=== PATIENT | female | born 1980 | race Native Hawaiian/Other Pacific Islander ===

== ENCOUNTER 2016-10-12 13:00 | Inpatient (IN) | payer BC ==
[~2016-10-12] VITALS: Ht 157.5 cm; Wt 101.6 kg
[2016-10-18] VITALS (9 sets, daily range): BP systolic 102–129; BP diastolic 51–67; PULSE 51–64; RESP 16–18; TEMP 97.5–98.2; O2SAT 99–100
[2016-10-18] MEDS ORDERED: LACTATED RINGER'S 1000 ML INJ 1,000 ML IV ONE (08:34)
[2016-10-18 08:45] LABS: BACTERIA, URINE OCC /hpf; BLOOD, URINE NEG (NEG); COMMENT (UR) CULT NOT INDICATED; CULTURE IF INDICATED CULT NOT INDICATED; GLUCOSE,URINE NEG (NEG); KETONE, URINE NEG (NEG); MUCUS URINE FEW /lpf (OCC); NITRITE,URINE NEG (NEG); SQUAMOUS EPITHELIAL CELL URINE 2 /hpf (0-5); URINE COLOR YELLOW (YELLW/STRAW)
[2016-10-18 08:45] LABS: AUTOMATED NEUTROPHIL # 5.8 TH/MM3 (1.8-7.7); BASOPHIL % 0.3 % (0.0-2.0); EOSINOPHIL # 0.1 TH/MM3 (0-0.4); EOSINOPHIL % 1.1 % (0.0-4.0); HEMATOCRIT 35.6 % (35.0-46.0); HEMO FLAGS DIFF FINAL; LYMPH % 19.9 % (9.0-44.0); LYMPHOCYTE # 1.6 TH/MM3 (1.0-4.8); MEAN CELL VOLUME 85.5 FL (80.0-100.0); MEAN CORPUSCULAR HEMOGLOBIN 28.7 PG (27.0-34.0); MEAN CORPUSCULAR HGB CONC 33.5 % (32.0-36.0); MONO % 6.9 % (0.0-8.0); NEUT % 71.8 % (16.0-70.0); PLATELET COUNT 196 TH/MM3 (150-450); RED BLOOD COUNT 4.17 MIL/MM3 (4.00-5.30); RED CELL DISTRIBUTION WIDTH 13.4 % (11.6-17.2); WHITE BLOOD COUNT 8.1 TH/MM3 (4.0-11.0)
[2016-10-18] MEDS ORDERED: LACTATED RINGER'S 1000 ML INJ 1,000 ML IV SCH ×2 (09:04→16:15)
[2016-10-18] MEDS ORDERED: VALA500T PO (09:26)
[2016-10-18] MEDS ORDERED: PREN29TA PO (09:26)
[2016-10-18] MEDS ORDERED: ceFAZolin 2 GM PREMIX 50 ML IV SCH (09:45)
[2016-10-18] MEDS ORDERED: OXYTOCIN 10 UNIT/ML AMP ONE (09:54)
[2016-10-18] MEDS ORDERED: ONDANSETRON HCL 4 MG/2 ML VIAL ONE (09:54)
[2016-10-18] MEDS ORDERED: MORPHINE SULFATE PF 5 MG/10 ML VIAL ONE (09:54)
--- NOTE | 2016-10-18 09:59 | HHI.HP ---
HPI Chief Complaint primary cd Date Seen: October 18, 2016 Travel History International Travel<30 Days: No Contact w/Intl Traveler<30Days: No Known Affected Area: No History of Present Illness HPI 35 yo G1 with iup at 39w3d here for primary cd for macrosomia. + FM, irreg ctx , neg lof or vb. Para: 0 : 1 History Past Medical History Narrative Medical AMA, exposure to HSV, varicella non-immune Past Surgical History Surgical History: No Previous Surgery Family History Family History: Negative Social History Alcohol Use: No Tobacco Use: No Substance Abuse: No Allergies-Medications (Allergen,Severity, Reaction): Coded Allergies: No Known Allergies (Unverified , 10/18/16) Home Meds Reported Medications Valacyclovir 500 Mg [id number] Mg PO DAILY #30 TAB Ref 0 10/18/16 Vit-Iron Carbonyl ( Plus Iron 29-1 mg)1 Tab Tab1 Tab PO DAILY #30 TAB Ref 0 10/18/16 Review of Systems General / Constitutional: No: Fever, Weight Gain, Chills, Other Eyes: No: Diploplia, Blurred Vision, Visual changes, Pain, Photophobia HENT: No: Headaches, Vertigo, Lightheadedness Cardiovascular: No: Irregular Rhythm, Chest Pain or Discomfort, Palpitations, Tachycardia, Syncope, Varicosities, Edema, Cyanosis Respiratory: No: Cough, Short of Breath, Other Gastrointestinal: No: Nausea, Vomiting, Diarrhea Genitourinary: No: Decreased Urinary Output, Oliguria Musculoskeletal: No: Limited ROM, Weakness, Cramping, Edema, Pain Skin: No Rash, No Itching, No Dryness, No Lumps, No Change in Pigmentation, No Change in Nails, No Alopecia, No Lesions Neurologic: No: Weakness, Dizziness, Syncope, Focal Abnormalities, Coordination Problem, Headache, Slurred Speech, Seizures Psychiatric: No: Depression, Suicidal Ideations, Homicidal Ideation Endocrine: No: Heat Intolerance, Cold Intolerance, Polydipsia, Polyuria, Other Physical Exam Narrative GENERAL: Well-nourished, well-developed patient. SKIN: Warm and dry. HEAD: Normocephalic and atraumatic. EYES: No scleral icterus. No injection or drainage. ENT: No nasal drainage noted. Mucous membranes pink. Airway patent. NECK: Supple, trachea midline. No JVD. CARDIOVASCULAR: Regular rate and rhythm without murmurs, gallops, or rubs. RESPIRATORY: Breath sounds equal bilaterally. No accessory muscle use. BREASTS: Bilateral exam showed no masses , no retractions, no nipple discharge. ABDOMEN/GI: Abdomen soft, non-tender, bowel sounds present, no rebound, no guarding Gravid to42 weeks size Fundal Height: [-] GENITOURINARY: External Genitalia: intact and normal in appearance defer today, unfavorable in office this week Presentation: ceph Membranes: [intact Uterine Contractions: irreg FHT's: Category: I Baseline: 140 Reactive: y Variability: mod Decels: [-] EXTREMITIES: No cyanosis or edema. BACK: Nontender without obvious deformity. No CVA tenderness. NEUROLOGICAL: Awake and alert. Motor and sensory grossly within normal limits. Five out of 5 muscle strength in all muscle groups. Normal speech. Data Data Vital Signs Reviewed: Yes Orders Admit To Inpatient (10/18/16 ) Vital Signs (Adult) .ON ADMISSION (10/18/16 08:34) Activity Oob Ad Dilia (10/18/16 08:34) Heart (10/18/16 08:34) Urinary Catheter Management RU.Q8H (10/18/16 08:34) ^ Preps (10/18/16 08:34) Scd / Hoang / Foot Pump RU.QSHIFT (10/18/16 08:34) ^ Ultrasound For Locatio (10/18/16 08:34) Diet Npo (10/18/16 Breakfast) Lactated Ringer's 1000 Ml Inj (Lr 1000 M (10/18/16 08:34) Lactated Ringer's 1000 Ml Inj (Lr 1000 M (10/18/16 09:04) Cefazolin 2 Gm Premix (Ancef 2 Gm Premix (10/18/16 09:45) Citric Acid-Sodium Citrate Liq (Bicitra (10/18/16 10:15) Type And Screen (10/18/16 08:34) Complete Blood Count With Diff (10/18/16 08:34) Urinalysis - C+S If Indicated (10/18/16 08:34) Inpatient Certification (10/18/16 ) Specimen To Be Collected PRN (10/18/16 08:34) Labs Laboratory Tests Test 10/18/16 10/18/16 08:10 08:25 Urine Color YELLOW Urine Turbidity CLEAR Urine pH 6.0 Urine Specific [place] 1.022 Urine Protein TRACE Urine Glucose (UA) NEG Urine Ketones NEG Urine Occult Blood NEG Urine Nitrite NEG Urine Bilirubin NEG Urine Urobilinogen LESS THAN 2.0 Urine Leukocyte Esterase MOD Urine RBC 1 Urine WBC 3 Urine Squamous Epithelial 2 Cells Urine Bacteria OCC Urine Mucus FEW Microscopic Urinalysis Comment CULT NOT INDICATED White Blood Count 8.1 Red Blood Count 4.17 Hemoglobin 11.9 Hematocrit 35.6 Mean Corpuscular Volume 85.5 Mean Corpuscular Hemoglobin 28.7 Mean Corpuscular Hemoglobin 33.5 Concent Red Cell Distribution Width 13.4 Platelet Count 196 Mean Platelet Volume 9.9 Neutrophils (%) (Auto) 71.8 Lymphocytes (%) (Auto) 19.9 Monocytes (%) (Auto) 6.9 Eosinophils (%) (Auto) 1.1 Basophils (%) (Auto) 0.3 Neutrophils # (Auto) 5.8 Lymphocytes # (Auto) 1.6 Monocytes # (Auto) 0.6 Eosinophils # (Auto) 0.1 Basophils # (Auto) 0.0 CBC Comment DIFF FINAL Differential Comment Blood Type O POSITIVE Antibody Screen NEGATIVE Blood Bank Comment Assessment/Plan Problem List: (1) Macrosomia (2) Advanced maternal age, primigravida Assessment and Plan 35 yo G1 with iup at 39w3d here for primary cd for macrosomia 1) Primary cd for macrosomia- discussed risks of macrosomia, shoulder dystocia, fracture, palsies, maternal trauma, including fourth degree lacerations and risk of incontinence, pph. Discussed unfavorable degroot score, small pelvis, high station and likely arrest of labor or descent. Discussed options, family in agreement with proceeding with primary cd. r/b/a discussed at length in office, re-iterated today. 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 Keena Miller MD October 18, 2016 09:59
[2016-10-18] MEDS ORDERED: CITRIC ACID-SODIUM CITRATE LIQ 30 ML UDC PO SCH (10:15)
[2016-10-18] MEDS ORDERED: LIDOCAINE 2%/EPINEPHrine PF 1:200,000 20ML SDV OTHER ONE (10:30)
[2016-10-18] MEDS ORDERED: LACTATED RINGER'S 1,000 ML BAG IV ONE (10:30)
[2016-10-18] MEDS ORDERED: ZOLPIDEM TARTRATE 5 MG TAB PO PRN (11:15)
[2016-10-18] MEDS ORDERED: ONDANSETRON HCL 4 MG/2 ML VIAL IV PUSH PRN (11:15)
[2016-10-18] MEDS ORDERED: OXYTOCIN 30 UNITS-500ML PREMIX 500 ML IV ONE (11:15)
[2016-10-18] MEDS ORDERED: SIMETHICONE 80 MG CHEWABLE TAB PO PRN (11:15)
[2016-10-18] MEDS ORDERED: oxyCODONE/ACETAMINOPHEN 5 MG/325 MG TAB PO PRN ×2 (11:15)
[2016-10-18] MEDS ORDERED: SODIUM CHLORIDE 0.9% FLUSH 10 ML FLUSH IV FLUSH PRN (11:15)
[2016-10-18] MEDS ORDERED: DOCUSATE SODIUM 50 MG/SENNA 8.6 MG TAB PO PRN (11:15)
--- NOTE | 2016-10-18 11:17 | HHI.DCPOC ---
Discharge Care Plan Diagnosis: (1) delivery delivered Your Health Problems Are: delivery Report Symptoms to Your Doctor -Temperate above 100.5 degrees -Redness, of incision or excessive or foul smelling drainage -Unusual pain or calf pain -Increased vaginal bleeding -Painful or difficulty urinating -Feelings of extreme sadness or anxiety after 2 weeks Goals to Promote Your Health * To prevent worsening of your condition and complications * To maintain your health at the optimal level Directions to Meet Your Goals Take your medications as prescribed Follow your dietary instruction Follow activity as directed Ensure plenty of rest for recovery Drink fluids for hydration Keep your appointments as scheduled Take your immunizations and boosters as scheduled If your symptoms worsen call your PCP, if no PCP go to Urgent Care Center or Emergency Room Smoking is Dangerous to Your Health. Avoid second hand smoke Call the 24-hour crisis hotline for domestic abuse at Keena Miller MD October 18, 2016 11:17
--- NOTE | 2016-10-18 11:19 | PD.OB.DELI ---
Procedure Note Section Procedure Pre Op Diagnosis: (1) Advanced maternal age, primigravida (2) Macrosomia Post Op Diagnosis: (1) Advanced maternal age, primigravida (2) Macrosomia Performed by Keena Miller Procedure: Primary Low Transverse Sec Indication for delivery: Other (macrosomia suspected) Informed consent obtained: For anesthesia, For procedure Confirmed correct: Patient, Procedure, Site, Time-out taken Anesthesia: Spinal Medication prior to procedure: As documented in eMAR Monitoring during procedure: Blood pressure monitoring, Pulse oximetry Urinary catheter: Inserted using sterile technique, To dependent drainage, ml urine output (50) Sterile preparation: Duraprep, In usual fashion, With drapes to expose affected area Position: Supine with wedge to right side, Supine with safety belt applied Operative Features Skin Incision: Pfannenstiel Uterine Incision: Low transverse w/knife / scissors Membranes Ruptured: Artificially, Amount of liquid (copious), Appearance of fluid (clear) Presentation: Occiput anterior Delivery of : Uneventful, Umbilical cord (nuchal cord x 1) Infant: Female One Minute : 9 Five Minute : 9 Weight: 4000g Status of infant: Viable, Cord blood, Nursery present Placenta delivered: Intact Medications: Antibiotics, Oxytocin Estimated blood loss: 800ml Procedure tolerated: Well Maternal Condition: Stable Condition: Stable Procedure in detail dictation Keena Miller MD October 18, 2016 11:19
[2016-10-18] MEDS ORDERED: OXYTOCIN 30 UNITS-500ML PREMIX 500 ML ONE (11:50)
[2016-10-18] MEDS ORDERED: ACETAMINOPHEN 325 MG TAB PO PRN (12:00)
[2016-10-18] MEDS ORDERED: EPIDURAL-NALOXONE HCL 0.4 MG/ML AMP IV PRN (13:00)
[2016-10-18] MEDS ORDERED: EPIDURAL-DIPHENHYDRAMINE HCL 50 MG/ML VIAL IV PUSH PRN (13:00)
[2016-10-18] MEDS ORDERED: EPIDURAL-DIPHENHYDRAMINE HCL 50 MG CAP PO PRN (13:00)
[2016-10-18] MEDS ORDERED: EPIDURAL-DO NOT ADMINISTER ANTICOAGULANTS PRN (13:00)
[2016-10-18] MEDS ORDERED: EPIDURAL-NO SYSTEMIC NARCOTICS PRN (13:00)
--- NOTE | 2016-10-18 13:04 | MP ---
cc: KEENA MILLER MD DATE OF SURGERY 10/18/2016 PREOPERATIVE DIAGNOSIS Advanced maternal age, macrosomia. POSTOPERATIVE DIAGNOSIS Advanced maternal age, macrosomia. PROCEDURE PERFORMED Primary low transverse section. INDICATION FOR DELIVERY Suspected macrosomia and a 38-week ultrasound showing weight of 9 pounds 3 ounces, and suspected cephalopelvic disproportion. 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 ANESTHESIA Spinal. ANTIBIOTICS Ancef 2 grams IV given pre incision. ESTIMATED BLOOD LOSS 800 ml. IV FLUIDS 1200 ml of LR. URINE OUTPUT 50 ml of clear, yellow urine at the end of the case. DEEP VENOUS THROMBOSIS PROPHYLAXIS SCDs on bilateral extremities. INTRAOPERATIVE FINDINGS Viable female with Apgars of 9 and 9 at 1 minute and 5 minutes, respectively. weight 4000 grams. Nuchal cord x1. Copious amounts amniotic fluid. Placenta intact. Three-vessel cord. Maternal anatomy posterior right fundal fibroid approximately 3 cm in size. Normal tubes and ovaries bilaterally. SPECIMEN Cord blood. COMPLICATIONS None. OPERATION IN DETAIL After reviewing informed consent the patient was taken to operating room. Time-out was performed to confirm correct patient, procedure and site. Spinal anesthesia was administered without complication. The patient was placed in dorsal supine position with a slight leftward tilt. A [place] was placed under sterile condition. The abdomen was prepped and draped in normal sterile fashion. SCDs were in place. Local anesthesia was noted to be adequate. A Pfannenstiel skin incision was made with scalpel and carried down to underlying layer of fascia with the Bovie. The fascia was incised in the midline with the Bovie. This incision was extended bilaterally with Vasquez scissors. The superior edge of the fascial incision was grasped with Evans clamps, elevated and the rectus muscle dissected off of the fascia with Vasquez scissors and bluntly. The same was repeated inferiorly. The rectus muscles were in the midline bluntly. The peritoneum was entered bluntly. A bladder blade was inserted with good visualization of the lower uterine segment. A bladder flap was created with Metzenbaum scissors and further developed digitally. A low transverse uterine incision was made with a scalpel. The incision was initially extended bluntly but the lower uterine segment was not thinned out so the bandage scissors were used to further extended the incision. The amnion was then ruptured and clear fluid in copious amounts was noted. The head was flexed. Fundal pressure was used to deliver the head. A cord was noted around the neck, this was reduced. Fundal pressure was used to assist with the rest of the delivery. Delayed cord clamping was performed. Cord blood was collected. Baby was handed off to awaiting cement mixer. IV infusion of Pitocin was started immediately after delivery of the . The placenta was delivered with gentle uterine massage and cord traction. Membranes were further removed from the uterus with the ring forceps. The uterus was exteriorized. A moist laparotomy sponges were used to clean the uterine cavity. The uterus was repaired with #1 chromic in a running locked fashion followed by an imbricating layer. The uterus was noted to be hemostatic. The posterior cul-de-sac was irrigated and suctioned. The uterus was returned to the abdomen. Anterior cul-de-sac was irrigated and suctioned. Good hemostasis was noted. The peritoneum was closed with 2-0 chromic in a running fashion. The fascia was closed with #1 Vicryl in a running fashion. The subcutaneous layer was irrigated and suctioned. Bovie was used to ensure hemostasis. This layer was closed with 2-0 Vicryl in a running fashion. Skin was closed with 3-0 Monocryl. Steri-Strips and a sterile dressing were placed. The patient tolerated the procedure well. She was sent to PACU in stable condition. Keena Miller MD PE/JES /11:24 AM /12:20 PM JOSE EDUARDO
[2016-10-18] MEDS ORDERED: SODIUM CHLORIDE 0.9% FLUSH 10 ML FLUSH IV FLUSH SCH (21:00)
[2016-10-18] MEDS ORDERED: OXYTOCIN 30 UNITS-500ML PREMIX 500 ML IV PRN (21:15)
[2016-10-19 03:41] LABS: AUTOMATED NEUTROPHIL # 10.4 TH/MM3 (1.8-7.7); BASOPHIL # 0.1 TH/MM3 (0-0.2); BASOPHIL % 0.5 % (0.0-2.0); EOSINOPHIL # 0.1 TH/MM3 (0-0.4); EOSINOPHIL % 0.5 % (0.0-4.0); HEMATOCRIT 33.2 % (35.0-46.0); HEMO FLAGS DIFF FINAL; LYMPHOCYTE # 1.4 TH/MM3 (1.0-4.8); MEAN CELL VOLUME 85.5 FL (80.0-100.0); MEAN CORPUSCULAR HEMOGLOBIN 28.8 PG (27.0-34.0); MEAN CORPUSCULAR HGB CONC 33.7 % (32.0-36.0); MONO % 5.5 % (0.0-8.0); NEUT % 82.5 % (16.0-70.0); PLATELET COUNT 190 TH/MM3 (150-450); RED BLOOD COUNT 3.89 MIL/MM3 (4.00-5.30); RED CELL DISTRIBUTION WIDTH 13.6 % (11.6-17.2); WHITE BLOOD COUNT 12.6 TH/MM3 (4.0-11.0)
[2016-10-19 04:00] VITALS: BP 108/60; PULSE 60; RESP 16; TEMP 98.2
[2016-10-19 08:00] VITALS: BP 107/52; PULSE 57; RESP 16; TEMP 98.2
[2016-10-19] MEDS ORDERED: PNEUMOCOCCAL POLYVALENT INJ 25 MCG/0.5 ML SYR IM ONE (09:00)
--- NOTE | 2016-10-19 12:21 | HHI.OB ---
Subjective Post Operative Day: 1 Remarks s/p scheduled for CPD/macrosomia Objective Vitals/I&O Vital Signs Date Time Temp Pulse Resp B/P Pulse Ox O2 Delivery O2 Flow Rate FiO2 10/19/16 08:00 98.2 57 16 107/52 10/19/16 04:00 60 16 108/60 10/19/16 04:00 98.2 10/18/16 23:48 97.8 57 16 119/64 10/18/16 16:00 51 16 113/51 10/18/16 13:00 97.5 54 17 106/62 10/18/16 12:30 55 18 121/63 100 Result Diagram: 10/19/16 0330 Objective Remarks GENERAL: Well-nourished, well-developed patient. CARDIOVASCULAR: Regular rate and rhythm without murmurs, gallops, or rubs. RESPIRATORY: Breath sounds equal bilaterally. No accessory muscle use. ABDOMEN/GI: Abdomen soft, non-tender, bowel sounds present. Incision: Clean, dry and intact. steri-strips in place. Fundus: Firm, non-tender at umbilicus. GENITOURINARY: Light bleeding. EXTREMITIES: No cyanosis or edema, non-tender, without signs of DVT. Medications and IVs Current Medications Medications (Trade) Dose Ordered Sig/Darwin Route Start Time Stop Time Status Last Admin (NS Flush) 2 ml BID IV FLUSH 10/18/16 21:00 (NS Flush) 2 ml UNSCH PRN IV FLUSH 10/18/16 11:15 (Mylicon Chew) 80 mg QID PRN PO 10/18/16 11:15 (Tylenol) 650 mg Q6H PRN PO 10/18/16 12:00 (Motrin) 600 mg Q6H PRN PO 10/18/16 11:15 (Percocet 5-325 Mg) 1 tab Q4H PRN PO 10/18/16 11:15 (Percocet 5-325 Mg) 2 tab Q4H PRN PO 10/18/16 11:15 (Citlali-Colace) 2 tab Q12H PRN PO 10/18/16 11:15 (Ambien) 5 mg HS PRN PO 10/18/16 11:15 (M-M-R Ii Inj) 0.5 ml ONCE ONCE SQ 10/19/16 16:00 10/19/16 16:01 (Boostrix Inj) 0.5 ml ONCE ONCE IM 10/19/16 16:00 10/19/16 16:01 (Zofran Inj) 4 mg Q6H PRN IV PUSH 10/18/16 11:15 Miscellaneous Information NO SYSTEMIC NARCOTICS TO BE GIVEN FO... UNSCH PRN .XX 10/18/16 13:00 10/19/16 12:59 (Narcan Inj) 0.4 mg UNSCH PRN IV 10/18/16 13:00 10/19/16 12:59 (Benadryl Inj) 25 mg Q6H PRN IV PUSH 10/18/16 13:00 10/19/16 12:59 (Benadryl) 50 mg Q6H PRN PO 10/18/16 13:00 10/19/16 12:59 Miscellaneous Information ALL NURSING DEPARTMENTS UNSCH PRN .XX 10/18/16 13:00 10/19/16 12:59 Assessment/Plan Problem List: (1) delivery delivered (2) Macrosomia (3) Advanced maternal age, primigravida Assessment and Plan 35 yo s/p primary LTCD for macrosomia at 39w3d POD#1 - ambulating, voiding, tolerating diet, pain controlled anticipate d/c on POD#2 or 3 female infant doing well . Discharge Planning routine, POD#2-3 Mira Beltran MD October 19, 2016 12:21
[2016-10-19] MEDS ORDERED: IBUP-232 PO (12:22)
[2016-10-19] MEDS ORDERED: OXYC1TAB63 PO (12:22)
[2016-10-19] MEDS ORDERED: SENN1TAB PO (12:22)
[2016-10-19] MEDS: IBUPROFEN 600 MG TAB PO PRN ×2 (14:52→20:54)
[2016-10-19] MEDS ORDERED: MEASLES, MUMPS, RUBELLA VACCINE 0.5 ML VIAL SQ ONE (16:00)
[2016-10-19] MEDS ORDERED: DIPHTH/TETANUS/ACEL PERTUSSIS (BOOSTER) 0.5 ML VIAL/PFS IM ONE (16:00)
[2016-10-20] MEDS: IBUPROFEN 600 MG TAB PO PRN ×2 (06:05→13:26)
--- NOTE | 2016-10-20 07:46 | HHI.OB ---
Subjective Post Operative Day: 2 Objective Vitals/I&O Vital Signs Date Time Temp Pulse Resp B/P Pulse Ox O2 Delivery O2 Flow Rate FiO2 10/19/16 08:00 98.2 57 16 107/52 Result Diagram: 10/19/16 0330 Objective Remarks GENERAL: Well-nourished, well-developed patient. CARDIOVASCULAR: Regular rate and rhythm without murmurs, gallops, or rubs. RESPIRATORY: Breath sounds equal bilaterally. No accessory muscle use. ABDOMEN/GI: Abdomen soft, non-tender, bowel sounds present. Incision: Clean, dry and intact. steri-strips in place. Fundus: Firm, non-tender at umbilicus. GENITOURINARY: Light bleeding. EXTREMITIES: No cyanosis or edema, non-tender, without signs of DVT. Medications and IVs Current Medications Medications (Trade) Dose Ordered Sig/Darwin Route Start Time Stop Time Status Last Admin (NS Flush) 2 ml BID IV FLUSH 10/18/16 21:00 (NS Flush) 2 ml UNSCH PRN IV FLUSH 10/18/16 11:15 (Mylicon Chew) 80 mg QID PRN PO 10/18/16 11:15 10/20/16 06:07 (Tylenol) 650 mg Q6H PRN PO 10/18/16 12:00 (Motrin) 600 mg Q6H PRN PO 10/18/16 11:15 10/20/16 06:05 (Percocet 5-325 Mg) 1 tab Q4H PRN PO 10/18/16 11:15 10/19/16 14:52 (Percocet 5-325 Mg) 2 tab Q4H PRN PO 10/18/16 11:15 (Citlali-Colace) 2 tab Q12H PRN PO 10/18/16 11:15 10/19/16 20:54 (Ambien) 5 mg HS PRN PO 10/18/16 11:15 (Zofran Inj) 4 mg Q6H PRN IV PUSH 10/18/16 11:15 Assessment/Plan Problem List: (1) delivery delivered (2) Macrosomia (3) Advanced maternal age, primigravida Assessment and Plan 35 yo s/p primary LTCD for macrosomia at 39w3d POD#1 - ambulating, voiding, tolerating diet, pain controlled anticipate d/c on POD#2 or 3 female infant doing well . Discharge Planning routine, POD#3 RTO 1 week Trina Patel MD October 20, 2016 07:46
[2016-10-20 08:55] VITALS: BP 134/67; PULSE 64; RESP 16; TEMP 98.6
== END 2016-10-20 14:18 | disposition home or self-care (01) | DRG 766 ==
LOC: H2EB 10-18 07:48 → H1EA 10-18 13:08
PROVIDERS: ADMIT Obstetrics & Gynecology; ATTEND Obstetrics & Gynecology
PROC: 10D00Z1 Extraction of Products of Conception, Low, Open Approach (ICD-10-PCS; principal; 2016-10-18)
DX: O36.63X0 Maternal care for excessive fetal growth, third trimester, not applicable or unspecified (principal); O33.5XX0 Maternal care for disproportion due to unusually large fetus, not applicable or unspecified; O69.81X0 Labor and delivery complicated by cord around neck, without compression, not applicable or unspecified; O34.13 Maternal care for benign tumor of corpus uteri, third trimester; Z37.0 Single live birth; Z3A.39 39 weeks gestation of pregnancy
CPT/HCPCS: 59025; 81001; 85025; 86850; 86900; 86901; J0690; J2274; J2405; J2590; J7120